=== PATIENT | female | born 1960 | race Caucasian/White ===

== ENCOUNTER 2024-12-24 08:08 | Outpatient (AMB) | payer MEDICARE, SELFPAY ==
--- NOTE | 2024-12-24 10:11 | A.OFFVIS_ITS ---
VS Expanded 12/24/24 10:31 Height 5 ft 2 in Weight 194 lb 8 oz BMI 35.6 Body Fat % 39.6 Body Fat Mass 77.2 Fat Free Mass 117.6 Visceral Fat Rating 12 Body Water % 39.6 Body Water Mass 83.2 Basal Metabolic Rate/Score 1,603 Intake Visit Reasons: [employer] SWL vs MWL BMI 35.6 Allergies sulfamethoxazole (From Bactrim) Allergy (Intermediate, Verified 12/24/24 10:11) Swelling trimethoprim (From Bactrim) Allergy (Intermediate, Verified 12/24/24 10:11) Swelling Medication List - Last Reconciled 12/24/24 by Reagan Dowell MD albuterol sulfate 90 mcg/actuation (Ventolin HFA) 2 puffs inhalation Q6H PRN budesonide-formoterol 80-4.5 mcg/actuation (Symbicort) 1 inh inhalation BID celecoxib 200 mg PO BID omeprazole 20 mg PO DAILY valacyclovir 1,000 mg PO DAILY HPI HPI TV [employer] SWL vs MWL BMI 35.6: Details: Start time: 10.09am, End time: 10.56am ?I spent 40 minutes speaking with the patient on the phone plus an additional 5 minutes reviewing and updating records for a total of 45 minutes HPI Comments Details: Previous weight loss efforts: Wakes up: 6.30am, Sleeps: 9pm Breakfast: 7am (eggs with vegetables, pizza with cottage cheese, oatmeal) Lunch: 12pm (yogurt with fruit) Dinner: 6pm (salmon with asparagus) Snacks: 10am (Kind bar), 4pm (Kind bar or apple), 7pm (ice cream) Exercise: has home Elliptical Beverages: Coffee (2-3 cups/d with half creamer), Tea: (1 cup x3/wk with 2% milk), Soda: none, Juice: none, ETOH: none PFSH Medical History (Updated 12/24/24 @ 10:47 by Reagan Dowell MD) Asthma DJD (degenerative joint disease) GERD (gastroesophageal reflux disease) BMI 35.0-35.9,adult Obesity Surgical History (Updated 12/24/24 @ 10:17 by Reagan Dowell MD) History of laparoscopic cholecystectomy History of appendectomy History of Family History (Updated 12/06/24 @ 13:19 by Thu Magaña CMA) Mother Breast cancer Hypertension Adult hypothyroidism Father No problems noted. Daughter Depression Autoimmune disease Daughter Depression Son Asthma Son Schizophrenia Social History (Updated 12/06/24 @ 13:19 by Thu Magaña CMA) Alcohol intake: never Patient Tobacco Use Status: Never used Tobacco Telehealth Telehealth Telehealth Platform: Telephone Location of provider rendering services: practice address Location of patient: address on file Patient Identification confirmed using: Name, : Yes Telehealth method: voice only Patient verbally consented to treatment: Yes Patient verbally consented to billing insurance company: Yes Patient informed of any privacy concerns related to visit: Yes Minutes spent on Phone/Video with Pt.: 45 Assessment & Plan Assessment & Plan (1) Obesity: Code(s): E66.9 - Obesity, unspecified Category: Medical Qualifiers: Obesity type: due to excess calories Obesity classification: adult class 2 (BMI 35 - 39.9) Serious obesity comorbidity presence: without serious comorbidity Body mass index: BMI 35.0-35.9 Qualified Code(s): E66.812 - Obesity, class 2; E66.09 - Other obesity due to excess calories; Z68.35 - Body mass index [BMI] 35.0-35.9, adult Plan: 1. We discussed in detail the available therapeutic options: 1) our lifestyle intervention program that has an average weight loss of 10% in 3 months.? 2) Weight loss medications. Unfortunately her insurance will not cover these medications unless she has the diagnosis of diabetes. We also discussed that you can self pay for the first 3 months and the cost is $249 for the first month and $499 for any other month thereafter. We also discussed the option of Phentermine and we discussed its potential side effects such as high blood pressure, dry mouth, insomnia or heart palpitations. 3) We also discussed about the lap sleeve gastrectomy. I emphasized the importance of close follow-up, adherence to instructions and good communication. The surgery does not replace the need to change your lifestlyle which is the cause of the obesity problem. The surgery provides the motivation to try again to change your lifestyle, it reduces the appetite and make the transition to a better lifestyle easier and doubles the amount of weight you would lose compared to doing the lifestyle change without the surgery. You will need to be on a liquid diet with protein shakes for 2 weeks before surgery to maximize weight loss and boost your nutritional status to recover better from surgery and also for the first two weeks after surgery to let the stomach heal before we introduce other foods. After the first 2 weeks we will introduce protein bars and soft foods like scrambled eggs, cottage cheese and yogurt and after the 6th week will introduce meat, fish and cooked vegetables in small amounts. Over time you should be able to eat everything in small amounts. Side effects like nausea, vomiting, heartburn or abdominal pain are not common in the practice unless you are not following in the practice. This operation requires lifetime commitment to following in our practice and communication with me. You will much less weight and experience side effects if you don?t communicate or not following in the practice. Complications are rare and in our practice is about 1/10 of the national average. The patient is interested in the surgical option but in order to qualify she would have to have either sleep apnea on CPAP, or medically treated hypertension. 2. The patient will be scheduled of an in-hospital sleep study 3. In addition I asked her to measure her blood pressure daily in the morning and text me the readings daily. Her blood pressure for this visit was elevated at 149/66 and if it remains high will require treatment with medications.
[2024-12-24 10:31] VITALS: BMI 35.6
== END 2024-12-24 10:57 | disposition home or self-care (01) ==
LOC: HO.HBS 08:08
PROVIDERS: Visit Provider Surgery
DX: E66.812 Obesity, class 2 (principal); E66.09 Other obesity due to excess calories; Z68.35 Body mass index [BMI] 35.0-35.9, adult
CPT/HCPCS: 99204